=== PATIENT | female | born 1950 | race Caucasian/White ===

== ENCOUNTER 2022-06-27 07:31 | Inpatient (IN) | payer OTHER, SELFPAY ==
[2022-06-27] VITALS (11 sets, daily range): BP systolic 131–170; BP diastolic 60–99; PULSE 80–91; RESP 16–20; TEMP 36.3–36.5; O2SAT 85–100; BMI 34.2
--- NOTE | 2022-06-27 | ECHO_ITS ---
Patient Info Name: Andie Kelsey Age: 71 years : 1950 Gender: Female Ht: 60 in Wt: 175 lbs BSA: 1.87 m2 HR: 88 bpm BP: 132 / 60 mmHg Technical Quality: Fair Exam Date: 06/27/2022 3:10 PM Exam Location: [facility] Patient Status: Outpatient Admit Date: 06/27/2022 Staff Ordering Physician: Fleiz Daniels Night Auditor: Lisset Knight RDCS Attending Provider: Ryann Soto MD Referring Physician: DALLAS CALDERÓN ; Exam Type: CA echo doppler color flow Study Info Indications - FLUID STATUS Complete two-dimensional, color flow and Doppler transthoracic echocardiogram is performed. Summary 1. Complete two-dimensional, color flow and Doppler transthoracic echocardiogram is performed. 2. Left ventricular chamber dimension is normal. 3. Left ventricular systolic function is normal, estimated at 65-70%. 4. There is mildly increased left ventricular wall thickness. 5. The left ventricular diastolic function is grade I diastolic dysfunction. 6. E/e' 13 is mildly elevated. 7. There is moderate aortic valve sclerosis. 8. No pulmonary hypertension, estimated pulmonary arterial systolic pressure is 27 mmHg. Left Ventricle E/e' 13 is mildly elevated. Left ventricular chamber dimension is normal. Left ventricular systolic function is normal, estimated at 65-70%. There is mildly increased left ventricular wall thickness. The left ventricular diastolic function is grade I diastolic dysfunction. Right Ventricle Right ventricular chamber dimension is normal. Right ventricular systolic function is normal. Left Atria Left atrial chamber dimension is normal. Right Atria Right atrial chamber dimension is normal. Aortic Valve The aortic valve is trileaflet. There is moderate aortic valve sclerosis. There is no aortic valve stenosis. There is no aortic valve regurgitation. Pulmonic Valve There is no pulmonic regurgitation. Mitral Valve There is no mitral valve stenosis. There is no mitral valve regurgitation. Tricuspid Valve There is no tricuspid valve regurgitation. No pulmonary hypertension, estimated pulmonary arterial systolic pressure is 27 mmHg. Pericardium/Pleural There is no pericardial effusion. Inferior Vena Cava Normal inferior vena cava with >50% collapse upon inspiration consistent with normal right atrial pressure, 5 mmHg. Aorta The aortic root size at the sinus of Valsalva is normal. Left Ventricular Outflow Tract Name Value Normal LVOT 2D LVOT Diameter 2.0 cm LVOT Doppler LVOT Peak Gradient 4 mmHg LVOT Mean Gradient 2 mmHg LVOT VTI 19 cm LVOT VTI/AV VTI Ratio 0.9 LVOT Stroke Volume 61 ml LVOT CO 5.5 l/min LVOT CI 2.9 l/min/m2 Pulmonic Valve Name Value Normal
--- NOTE | ~2022-06-27 | CT_ITS ---
EXAMINATION: CT chest abdomen pelvis w con DATE: 06/27/2022 16:28 INDICATION: Shortness of breath. Nausea and vomiting. TECHNIQUE: Computed tomography (CT) of the chest, abdomen, and pelvis was performed with 100 mL Omnip aque 350 intravenous contrast. Automated exposure control and iterative reconstruction technique were employed. The dose-length product was 1413.43 mGy-cm. COMPARISON: None FINDINGS: CHEST CT: There are moderate-sized right and small left pleural effusions. There is smooth septal thickening in the lungs, consistent with mild pulmonary edema. There is atelectasis in the lungs with a dependent predominance. There are greater than 10 nodules in the lungs measuring up to 8 mm. The heart size is normal. There are coronary artery calcifications. No pericardial effusion. There is right hilar and m ediastinal lymphadenopathy including confluent lymphadenopathy in the superior mediastinum. There is a mass at the right sternoclavicular joint. Partially visualized is a 6.2 x 3.7 cm mass in inferior r ight breast with skin retraction. There are scattered lytic lesions of bone, consistent with metastat ic disease. There is mild thoracic spondylosis. There is a healing pathologic fracture of right sixth rib. There are a few scattered masses in the body wall. ABDOMEN/PELVIS CT: The liver and spleen are normal. There are changes of cholecystectomy. The pancreas demonstrates calc ifications and duct dilatation, consistent with chronic pancreatitis. The adrenal glands and left kid ada are normal. There is a 14 mm cyst in right kidney. There is an umbilical hernia containing fat. T here is diverticulosis of the colon without evidence of diverticulitis. There are no dilated loops of bowel. The appendix is normal. There are no pathologically enlarged lymph nodes. There is no free in traperitoneal fluid. There are scattered lytic lesions of bone including in the sacrum and iliac bone s. There is a pathologic avulsion fracture of lesser trochanter of proximal left femur with 3 cm dist raction. There is a lytic lesion of right anterior-inferior iliac spine with pathologic fracture. The re is severe lumbar spondylosis. IMPRESSION: 1. Right breast mass, consistent with primary malignancy. 2. Lung nodules, mediastinal lymphadenopathy, body wall masses, and widespread bone lesions, consiste nt with metastatic disease. 3. Moderate-sized right and small left pleural effusions. 4. Mild pulmonary edema. Reviewed, dictated and finalized at location A. IMPRESSION: 1. Right breast mass, consistent with primary malignancy. 2. Lung nodules, mediastinal lymphadenopathy, body wall masses, and widespread bone lesions, consistent with metastatic disease. 3. Moderate-sized right and small left pleural effusions. 4. Mild pulmonary edema.
--- NOTE | ~2022-06-27 | US_ITS ---
EXAMINATION: US right upper quadrant DATE: 06/27/2022 17:15 INDICATION: Abnormal liver function tests. TECHNIQUE: Multiple grayscale and Doppler ultrasound images of the abdomen were obtained. COMPARISON: CT 06/27/2022 FINDINGS: The visualized portions of the head of the pancreas are normal. The liver is normal without focal lesion. There is normal flow in main portal vein. The gallbladder is absent. The common duct i s normal and measures 7 mm. There is a right pleural effusion. IMPRESSION: 1. Right pleural effusion. Reviewed, dictated and finalized at location A. IMPRESSION: 1. Right pleural effusion.
--- NOTE | ~2022-06-27 | US_ITS ---
EXAMINATION: US thoracentesis DATE: 06/28/2022 11:56 INDICATION: pleural effusion TECHNIQUE: The procedure and its risks, benefits, and alternatives were discussed with the patient. P otential risks discussed included bleeding, infection, and pneumothorax. The patient understood the r isks and agreed to proceed. The skin was prepped and draped in sterile fashion. 1% lidocaine was used for local anesthesia. Under ultrasound guidance, a 5 Fr catheter with trochar was advanced into the right pleural effusion. Fluid was aspirated. The catheter was removed, and a dressing was applied. Th ere were no immediate complications. FINDINGS: Ultrasound images demonstrate a right pleural effusion and the catheter within the fluid. IMPRESSION: 1. Successful ultrasound-guided thoracentesis yielding 750 mL of clear, yellow fluid. Reviewed, dictated and finalized at location A.
--- NOTE | ~2022-06-27 | US_ITS ---
EXAMINATION: US venous doppler [facility] DATE: 06/27/2022 17:14 INDICATION: Lower limb edema. TECHNIQUE: Grayscale ultrasound images without and with compression and Doppler ultrasound images of the bilateral lower extremity veins were obtained. COMPARISON: None. FINDINGS: The visualized portions of right common femoral vein, profunda (deep) femoral vein, femoral vein, pop liteal vein, peroneal veins, posterior tibial veins, and greater saphenous vein outflow are patent. The visualized portions of left common femoral vein, profunda femoral vein, femoral vein, popliteal v ein, peroneal veins, posterior tibial veins, and greater saphenous vein outflow are patent. IMPRESSION: 1. No deep venous thrombosis. Reviewed, dictated and finalized at location A.
--- NOTE | ~2022-06-27 | XR_ITS ---
EXAMINATION: [id number] DATE: 06/28/2022 11:58 INDICATION: Right pleural effusion status post thoracentesis. TECHNIQUE: Frontal and lateral views of the chest were obtained. COMPARISON: Chest 2 views 06/27/2022, chest CT 06/27/2022 FINDINGS: The patient is rotated to her left on the frontal view. There are small pleural effusions. There is mild atelectasis in left lower lung zone. No pneumothorax. The heart size is normal. IMPRESSION: 1. Small pleural effusions with improvement on the right status post thoracentesis. 2. Mild atelectasis in left lower lung zone. Reviewed, dictated and finalized at location A. IMPRESSION: 1. Small pleural effusions with improvement on the right status post thoracente sis. 2. Mild atelectasis in left lower lung zone.
--- NOTE | ~2022-06-27 | XR_ITS ---
XR chest 2V 06/27/2022 08:11 Indication: Cough with shortness of breath Procedure: 2 view chest Comparison: No prior studies for comparison. Findings: Heart size normal. Diffuse bilateral airspace disease is present which may represent pneumo catarino or edema. Small pleural effusions. No pneumothorax. There are advanced degenerative changes right shoulder. Impression: 1: Diffuse bilateral airspace disease may represent pneumonia or edema. 2: Small pleural effusions. Reviewed, dictated and finalized at location B. Impression: 1: Diffuse bilateral airspace disease may represent pneumonia or edema. 2: Small pleural effusions.
--- NOTE | ~2022-06-27 | XR_ITS ---
EXAMINATION: XR chest 1V portable Exam Date/Time: 06/28/2022 15:35 CDT HISTORY: chest pain; hx of CHF Comparison: 06/27/2022. RESULT: Lines, tubes, and devices: None. Lungs and pleura: Slightly improved bibasilar aeration. Persistent reticular opacities and ill-defin ed vascular margins. Minimal bilateral angle blunting. Cardiomediastinal silhouette: Stable. Other: No acute osseous or upper abdominal finding. IMPRESSION: Interstitial pulmonary edema. Possible small bilateral effusions. Reviewed, dictated and finalized at location K.
--- NOTE | 2022-06-27 07:32 | ECG_ITS ---
Measurements Intervals [place] Rate: 64 P: 47 AL: 151 QRS: -12 QRSD: 70 T: 38 QT: 313 QTc: 325 Interpretive Statements BASELINE ARTIFACT/REDUCED DATA QUALITY SINUS RHYTHM WITH FREQUENT SUPRAVENTRICULAR PREMATURE COMPLEXES LOW QRS VOLTAGE IN PRECORDIAL LEADS [QRS DEFLECTION < 1.0 mV IN CHEST LEADS] NONSPECIFIC T-WAVE ABNORMALITY ABNORMAL RHYTHM ECG NO PREVIOUS ECG AVAILABLE FOR COMPARISON Electronically Signed On 06-27-2022 12:01:21 CDT by Juan Ralph M.D.
[2022-06-27 07:49] LABS: Basophils Percent Auto 0.5 % (0.2-1.2); Eosinophils Absolute Auto 0.2 K/mm3 (0-0.3); Eosinophils Percent Auto 2.1 % (0-4.4); Hemoglobin 12.3 g/dL (12.0-15.0); Immature Granulocyte Absolute 0.05 K/mm3 (0.00-0.031); Immature Granulocyte Percent A 0.7 % (0-0.5); Lymphocytes Absolute Auto 2.13 K/mm3 (0.9-3.2); Lymphocytes Percent Auto 28.1 % (18.3-44.2); Mean Corpuscular HGB Conc 32.4 g/dl (32-36); Mean Corpuscular Hemoglobin 31.2 pg (26-34); Mean Corpuscular Volume 96.4 fl (80-100); Monocytes Absolute Auto 0.8 K/mm3 (0.1-0.6); Neutrophils Absolute Auto 4.4 K/mm3 (1.3-6.7); Neutrophils Percent Auto 57.6 % (45.5-73.1); Platelet Count Result 341 k/mm3 (150-375); Red Blood Count 3.94 M/mm3 (4.2-5.4); Red Cell Distribution Width 14.9 % (11.5-14.5); White Blood Count 7.6 K/mm3 (4.5-10.0)
--- NOTE | 2022-06-27 07:53 | ED.SOB ---
HPI - SOB/Dyspnea General Chief Complaint: Shortness of Breath/Dyspnea Stated Complaint: dyspnea Time Seen by Provider: 06/27/22 07:34 History of Present Illness HPI Narrative: Patient presents here with several months of cough, worsening over last couple days, no fevers or chills, no nausea vomiting or diarrhea, was sent from jail because she was having increasing shortness of breath. Denies any lower extremity edema, or pain; no CHF or COPD, no chest pain. Related Data Allergies Allergy/AdvReac Type Severity Reaction Status Date / Time No Known Allergies Allergy Verified 06/27/22 10:43 Review of Systems Review of Systems: CONST: No fever. HEENT: No sore throat C/V: No chest pain RESP: cough GI: no nausea vomiting : No dysuria. M/S: No joint pain. SKIN: No rash. NEURO: [No headache or focal numbness or weakness] PSYCH: [No depression] PMFSH Past Medical History Medical History (Updated 06/27/22 @ 11:27 by Patience Allen MD) Depression Diabetes Social History Social History (Updated 06/27/22 @ 11:27 by Patience Allen MD) Smoking status: Never smoker Course Vital Signs Vital signs: Vital Signs Temperature 97.3 F L 06/27/22 07:33 Pulse Rate 91 06/27/22 07:33 Respiratory Rate 20 06/27/22 07:33 Blood Pressure 170/99 H 06/27/22 07:33 Pulse Oximetry 85 L 06/27/22 07:33 Oxygen Delivery Room Air 06/27/22 07:33 Temperature 97.6 F 06/27/22 10:40 Pulse Rate 90 06/27/22 10:40 Respiratory Rate 16 06/27/22 10:40 Blood Pressure 154/80 H 06/27/22 10:40 Pulse Oximetry 96 06/27/22 10:40 Oxygen Delivery Nasal Cannula 06/27/22 07:38 Oxygen Flow Rate 2 06/27/22 07:38 MDM - SOB/Dyspnea MDM Narrative Medical decision making narrative: 71-year-old female presenting with persistent cough and increasing shortness of breath, vital signs notable for hypoxia, patient placed on NC, and on exam NLR with clear lungs. Family now tells me this cough is chronic and she was being worked up for possible lung ca. CXR shows bilateral patchy opacities, concerning for possible edema versus pneumonia, given patient has already had multiple courses of azithromycin and the patchy opacities do not appear focal and WBC not elevated and I do feel less likely for this to be bacterial, I will not start patient on antibiotics at this time, patient will be admitted for further work-up and evaluation. D/w family and patient and hospitalist. Lab Data Result diagrams: 06/27/22 07:42 06/27/22 07:42 Labs: Lab Results 06/27/22 06/27/22 06/27/22 Range/Units 07:42 07:42 07:42 WBC 7.6 (4.5-10.0) K/mm3 RBC 3.94 L (4.2-5.4) M/mm3 Hgb 12.3 (12.0-15.0) g/dL Hct 38.0 (37.0-47.0) % MCV 96.4 (80-100) fl MCH 31.2 (26-34) pg MCHC 32.4 (32-36) g/dl RDW 14.9 H (11.5-14.5) % Plt Count 341 (150-375) k/mm3 MPV 10.0 (7.4-10.4) fl Immature Gran % (Auto) 0.7 H (0-0.5) % Neut % (Auto) 57.6 (45.5-73.1) % Lymph % (Auto) 28.1 (18.3-44.2) % Tompkins % (Auto) 11.0 H (2.6-8.5) % Eos % (Auto) 2.1 (0-4.4) % Baso % (Auto) 0.5 (0.2-1.2) % Lymph # (Auto) 2.13 (0.9-3.2) K/mm3 Tompkins # (Auto) 0.8 H (0.1-0.6) K/mm3 Eos # (Auto) 0.2 (0-0.3) K/mm3 Baso # (Auto) 0.0 (0.0-0.1) K/mm3 Abs Immat Gran (auto) 0.05 H (0.00-0.031) K/mm3 Absolute Neuts (auto) 4.4 (1.3-6.7) K/mm3 Absolute Nucleated RBC 0.0 (0.0-0.012) K/mm3 Nucleated RBC % 0.0 (0.0-0.2) % Sodium 137 (137-145) mmol/L Potassium 3.8 (3.4-5.0) mmol/L Chloride 99 (98-107) mmol/L Carbon Dioxide 30 (22-30) mmol/L Anion Gap 8 (8-16) mmol/L BUN 24 H (7-17) mg/dL Creatinine 0.80 (0.7-1.0) mg/dL Estim Creat Clear Calc Not Reportable Estimated GFR > 60 (59 - ) Glucose 106 (65-110) mg/dL Calcium 9.4 (8.4-10.2) mg/dL Total Bilirubin 0.6 (0.2-1.3) mg/dL AST 102 H (14-36) U/L
[2022-06-27 08:01] LABS: Alanine Aminotransferase 67 U/L (6-35); Albumin Level 3.7 g/dL (3.5-5.1); Alkaline Phosphatase 132 U/L (38-126); Anion Gap 8 mmol/L (8-16); Aspartate Amino Transferase 102 U/L (14-36); Bilirubin,Total 0.6 mg/dL (0.2-1.3); Blood Urea Nitrogen 24 mg/dL (7-17); Calcium 9.4 mg/dL (8.4-10.2); Carbon Dioxide 30 mmol/L (22-30); Chloride 99 mmol/L (98-107); Estimated Glomerular Filt Rate > 60; Glucose 106 mg/dL (65-110); Potassium 3.8 mmol/L (3.4-5.0); Sodium 137 mmol/L (137-145)
[2022-06-27 08:28] LABS: SARS-CoV-2 RNA PCR Negative
[2022-06-27 10:05] LABS: NT Pro B Type Natriuretic Pept 162 pg/mL (5-100)
[2022-06-27] MEDS: ONDANSETRON INJ 4 MG/2 ML VIAL IV PUSH ×2 (13:52→21:53)
--- NOTE | 2022-06-27 14:20 | PM.IMHP ---
H&P: HPI History of Present Illness Date/Time: 06/27/22 14:20 Chief Complaint: Increased shortness of breath Narrative: Patient is a 71-year-old female with a past medical history of breast cancer, CVA, hypothyroidism, glaucoma, diabetes, hyperlipidemia, oa who presented to the ED with increased shortness of breath. Patient stated that her shortness of breath has been going on for about 2 weeks. She states that it gets so bad that she is unable to talk. She also stated that she has been having a cough however the cough has been going on for about 5 months. She reports that she is not getting anything up with her cough. Family reports that she has not been eating and has had lack of appetite. She also states that when she gets up in the morning that she is nauseated and has had Zofran right away. She also denies any chest pain, headaches, vomiting, weakness, fatigue, dizziness or syncope or falls. Is reported that the patient usually uses depends. She reports no issues with urination including pain, burning, a frequency. She does report some pain in the bilateral hands and arms. She also states that she used to have swelling specially when she has had chair in her bilateral lower extremities however when she is lying in bed it does not swell as bad. Patient also states that she does become very short of breath especially talking. Her family does say that she is very immobile and does little to get herself out of bed to a chair. They did say 1 time about 2 months ago she was getting herself pivoting from the bed to the chair however she has not been wanting to that since she has not been feeling good. There is also mention that the patient was diagnosed with breast cancer recently and she does not want any surgery, chemo, radiation. She was trying to get her scans a PET scan and bone density scan however with insurance issues there has been problems getting those and her scheduled currently on the . Patient denies being a smoker however she was around a lot of smoking her life. Her dad and her were both heavy smokers. Chest x-ray does show diffuse bilateral airspace disease representing pneumonia or edema and small pleural effusions. BNP was slightly elevated 162. Liver enzymes are elevated AST 102 ALT 67 alk-phos 132. Will get a CT of the chest abdomen and pelvis. As patient was eating today she did have issues with nausea which was causing her inability to finish her food. Patient is being admitted to the hospital services as inpatient Review of Systems Review of Systems: All systems reviewed & are unremarkable except as noted in HPI and below PMFSH Past Medical History Medical History Breast cancer CHF (congestive heart failure) Depression Diabetes GERD (gastroesophageal reflux disease) Glaucoma Hyperlipidemia Hypothyroid Peripheral neuropathy Surgical History Surgical History H/O: hysterectomy Hx of appendectomy Family History Family History Mother Pulmonary embolism Abdominal malignancy Diabetes mellitus Father Malignant neoplasm of prostate Social History Social History (Updated 06/27/22 @ 14:38 by RITCHIE Courtney) Social History: Patient currently is a resident of [facility]. Her son Casey and daughter in law Barbara are her surrogates. Her about 6 years ago. She denies having any pets. She wishes to be a full code at this time. Smoking status: Never smoker Second hand tobacco smoke exposure: Yes (Father and were heavy smokers) Alcohol intake: never Substance use: never Living arrangements: intermediate Additional living arrangements comments: [facility] Occupation/Education: occupation Additional occupation/education comments: [employer]- called the [employer] Gender iden
--- NOTE | 2022-06-27 14:46 | PCDIET ---
Nutrition screen for MST and PU. Submitted full assessment with no protein or fluid recommendations. Awaiting diagnoses to determine appropriate amount. Will edit on Thursday.
[2022-06-27] MEDS: DOCUSATE SODIUM 100 MG CAPSULE PO (17:42)
[2022-06-27 17:43] LABS: Glucose Point of Care 86 mg/dl (65-105)
[2022-06-27] MEDS: FUROSEMIDE INJ 40 MG/4 ML VIAL (17:43)
[2022-06-27 19:51] LABS: Hemoglobin A1C 5.4 % (<5.7)
[2022-06-27] MEDS: LATANOPROST 0.005% OP SOLN 2.5 ML BTL 1 DROP RIGHT EYE (20:24)
[2022-06-27] MEDS: PANTOPRAZOLE 40 MG TABLET PO (20:24)
[2022-06-27 20:32] LABS: Glucose Point of Care 96 mg/dl (65-105)
[2022-06-27] MEDS: HYDROcodone/acetaminophen (*CRX) 5-325 MG TABLET 1 TAB PO (21:53)
[2022-06-28] VITALS (9 sets, daily range): BP systolic 120–152; BP diastolic 59–76; PULSE 76–91; RESP 17–20; TEMP 35.8–37; O2SAT 92–98
[2022-06-28] MEDS: guaiFENesin 600 MG/DEXTROMETHORPHAN 30 MG SR TAB 12 HR 1 TAB PO ×2 (00:17→19:58)
[2022-06-28] MEDS: ONDANSETRON INJ 4 MG/2 ML VIAL IV PUSH ×2 (02:05→06:02)
[2022-06-28] MEDS: LEVOTHYROXINE SODIUM 75 MCG TABLET PO (06:02)
[2022-06-28 06:10] LABS: Basophils Percent Auto 0.4 % (0.2-1.2); Eosinophils Absolute Auto 0.1 K/mm3 (0-0.3); Eosinophils Percent Auto 1.5 % (0-4.4); Hematocrit 38.9 % (37.0-47.0); Hemoglobin 12.5 g/dL (12.0-15.0); Immature Granulocyte Absolute 0.05 K/mm3 (0.00-0.031); Immature Granulocyte Percent A 0.6 % (0-0.5); Lymphocytes Absolute Auto 1.97 K/mm3 (0.9-3.2); Lymphocytes Percent Auto 23.9 % (18.3-44.2); Mean Corpuscular HGB Conc 32.1 g/dl (32-36); Mean Corpuscular Hemoglobin 30.9 pg (26-34); Mean Corpuscular Volume 96.3 fl (80-100); Mean Platelet Volume 10.2 fl (7.4-10.4); Monocytes Percent Auto 11.9 % (2.6-8.5); Neutrophils Absolute Auto 5.1 K/mm3 (1.3-6.7); Neutrophils Percent Auto 61.7 % (45.5-73.1); Platelet Count Result 361 k/mm3 (150-375); Red Blood Count 4.04 M/mm3 (4.2-5.4); Red Cell Distribution Width 15.1 % (11.5-14.5); White Blood Count 8.3 K/mm3 (4.5-10.0)
[2022-06-28 06:31] LABS: Alanine Aminotransferase 75 U/L (6-35); Albumin Level 3.9 g/dL (3.5-5.1); Alkaline Phosphatase 145 U/L (38-126); Anion Gap 9 mmol/L (8-16); Aspartate Amino Transferase 122 U/L (14-36); Bilirubin,Total 0.4 mg/dL (0.2-1.3); Blood Urea Nitrogen 22 mg/dL (7-17); Calcium 9.3 mg/dL (8.4-10.2); Carbon Dioxide 31 mmol/L (22-30); Chloride 96 mmol/L (98-107); Estimated CRCL calculation 46 ml/min; Estimated Glomerular Filt Rate > 60; Glucose 96 mg/dL (65-110); Magnesium 1.6 mg/dL (1.6-2.3); Potassium 3.7 mmol/L (3.4-5.0); Sodium 136 mmol/L (137-145)
[2022-06-28 08:02] LABS: Glucose Point of Care 94 mg/dl (65-105)
[2022-06-28] MEDS: METOCLOPRAMIDE HCL INJ 10 MG/2 ML VIAL IV PUSH (08:14)
[2022-06-28 08:32] LABS: INR 1.1; Prothrombin Time 13.8 Seconds (11.1-14.7)
[2022-06-28] MEDS: PANTOPRAZOLE SODIUM IV 40 MG VIAL IV PUSH ×2 (08:33→19:59)
[2022-06-28] MEDS: FUROSEMIDE INJ 40 MG/4 ML VIAL IV PUSH (08:33)
[2022-06-28 08:39] LABS: Triglycerides 128 mg/dL (<150)
[2022-06-28 08:51] LABS: Lipase < 10 U/L (23-300)
[2022-06-28 08:53] LABS: Amylase 32 U/L (30-110); Cholesterol 140 mg/dL (0-200); Lactate Dehydrogenase 322 U/L (120-246)
[2022-06-28 09:25] LABS: Hepatitis B Surface Antigen Negative (Negative)
[2022-06-28 09:31] LABS: HAV RESULT Negative (Negative); Hepatitis B Core IgM Result Negative (Negative)
[2022-06-28 09:42] LABS: Hepatitis C Virus Antibody Negative (Negative)
--- NOTE | 2022-06-28 11:30 | P.PNIM_ITS ---
Progress Note: A&P Assessment and Plan (1) CHF (congestive heart failure): Code(s): I50.9 - Heart failure, unspecified Status: Acute Assessment and Plan: * Chest xray shows PNA vs edema * CT of the chest/abd/pel found mild pulmonary edema, metastatic lesions, and moderate right side pleural effusion * BNP 162 * Echo EF of 65-70% with grade 1 diastolic dysfunction, moderate A. Valve stenosis, left vent wall thickening * Lasix 40mg IV daily for now * Trend daily weights * Appears to be in diastolic dysfunction heart failure exacerbation * Trend urinary output (2) Pleural effusion: Code(s): J90 - Pleural effusion, not elsewhere classified Status: Acute Assessment and Plan: * CT of the chest found moderate right sided pleural effusion * Thoracentesis 750ml off * Diagnostic labs ordered and pending * Hold anticoagulation for now * Probably the reason for the shortness of breath * NPO for now (3) Metastatic breast cancer: Code(s): C50.919 - Malignant neoplasm of unspecified site of unspecified female breast Status: Acute Assessment and Plan: * CT shows primary breast cancer, with metastasis to the lung, lymph nodes, and bone * Bone scan and Pet scan ordered for the end of the month * Patient not wanting treatment * Probably will need to have a hospice consult * Will plan for family discussion today (4) Diabetes: Code(s): E11.9 - Type 2 diabetes mellitus without complications Status: Acute Assessment and Plan: * Current glucose 96 * Accu Cheks achs * Diabetic diet * A1c 5.4 * Hold home orals * ISS * Trend glucose * Adjust therapy as indicated (5) Hypothyroid: Code(s): E03.9 - Hypothyroidism, unspecified Status: Acute Assessment and Plan: * TSH 3.260 * Continue home levothyroxine 75 mcg PO Daily * Adjust as indicated (6) Hyperlipidemia: Code(s): E78.5 - Hyperlipidemia, unspecified Status: Acute Assessment and Plan: * Continue home simvastatin and fenofibrate * Liver enzymes slightly elevated will continue to trend labs (7) Transaminitis: Code(s): R74.01 - Elevation of levels of liver transaminase levels Status: Acute Assessment and Plan: * AST/ALT 122/75 * Alk phos 145 * RUQ ultra sound normal * Lipase * Hep panel * Continue to trend labs (8) Pathologic fracture: Status: Acute Assessment and Plan: * CT found multiple pathological bone fractures, including right sixth rib, lesser trocanter of the proximal left femur * Multiple lesion noted in multiple bones through out the body, see ct scan * Bone scan schedule outpatient (9) Lung nodules: Code(s): R91.8 - Other nonspecific abnormal finding of lung field Status: Acute Assessment and Plan: * CT of the chest identified greater than 10 lung nodes * Probably the cause for the pleural effusion * Thoracentesis ordered with diagnostics (10) Nausea and vomiting: Code(s): R11.2 - Nausea with vomiting, unspecified Status: Acute Assessment and Plan: * Complaints of nausea and vomiting * Change PO protonix to IV for now BID * Zofran ordered * Reglan x 1 * Could be related to m
--- NOTE | 2022-06-28 11:30 | PM.IMPN ---
Progress Note: A&P Assessment and Plan (1) CHF (congestive heart failure): Code(s): I50.9 - Heart failure, unspecified Status: Acute Assessment and Plan: Chest xray shows PNA vs edema CT of the chest/abd/pel found mild pulmonary edema, metastatic lesions, and moderate right side pleural effusion BNP 162 Echo EF of 65-70% with grade 1 diastolic dysfunction, moderate A. Valve stenosis, left vent wall thickening Lasix 40mg IV daily for now Trend daily weights Appears to be in diastolic dysfunction heart failure exacerbation Trend urinary output (2) Pleural effusion: Code(s): J90 - Pleural effusion, not elsewhere classified Status: Acute Assessment and Plan: CT of the chest found moderate right sided pleural effusion Thoracentesis 750ml off Diagnostic labs ordered and pending Hold anticoagulation for now Probably the reason for the shortness of breath NPO for now (3) Metastatic breast cancer: Code(s): C50.919 - Malignant neoplasm of unspecified site of unspecified female breast Status: Acute Assessment and Plan: CT shows primary breast cancer, with metastasis to the lung, lymph nodes, and bone Bone scan and Pet scan ordered for the end of the month Patient not wanting treatment Probably will need to have a hospice consult Will plan for family discussion today (4) Diabetes: Code(s): E11.9 - Type 2 diabetes mellitus without complications Status: Acute Assessment and Plan: Current glucose 96 Accu Cheks achs Diabetic diet A1c 5.4 Hold home orals ISS Trend glucose Adjust therapy as indicated (5) Hypothyroid: Code(s): E03.9 - Hypothyroidism, unspecified Status: Acute Assessment and Plan: TSH 3.260 Continue home levothyroxine 75 mcg PO Daily Adjust as indicated (6) Hyperlipidemia: Code(s): E78.5 - Hyperlipidemia, unspecified Status: Acute Assessment and Plan: Continue home simvastatin and fenofibrate Liver enzymes slightly elevated will continue to trend labs (7) Transaminitis: Code(s): R74.01 - Elevation of levels of liver transaminase levels Status: Acute Assessment and Plan: AST/ALT 122/75 Alk phos 145 RUQ ultra sound normal Lipase Hep panel Continue to trend labs (8) Pathologic fracture: Status: Acute Assessment and Plan: CT found multiple pathological bone fractures, including right sixth rib, lesser trocanter of the proximal left femur Multiple lesion noted in multiple bones through out the body, see ct scan Bone scan schedule outpatient (9) Lung nodules: Code(s): R91.8 - Other nonspecific abnormal finding of lung field Status: Acute Assessment and Plan: CT of the chest identified greater than 10 lung nodes Probably the cause for the pleural effusion Thoracentesis ordered with diagnostics (10) Nausea and vomiting: Code(s): R11.2 - Nausea with vomiting, unspecified Status: Acute Assessment and Plan: Complaints of nausea and vomiting Change PO protonix to IV for now BID Zofran ordered Reglan x 1 Could be related to metastatic breast cancer CT of the abdomen does not indicate any findings except chronic pancreatitis Lipase ordered RUQ ultrasound does not indicate reason for the nausea and vomiting Time Spent With Patient Time: 35 minutes talking with the patient and family about current findings Time with patient: Greater than 35 minutes Subjective Date/time seen: 06/28/22 11:30 Interval history: 06/28/22 1130 patient seems to be doing okay this morning. She seems very tired and weak. She also stated that she is not able to move around like she likes. She has been very nauseous and vomitus today. She stated that she did have a BM this morn
[2022-06-28 12:32] LABS: Glucose Point of Care 80 mg/dl (65-105)
[2022-06-28 12:51] LABS: Appearance Pleural Fluid Hazy (Clear); Color Pleural Fluid Yellow (Colorless); Pleural fluid source Pleural fluid
[2022-06-28 12:56] LABS: Lymphocytes Pleural Fluid 94 %; Mesothelial Cells Pleural Flui 2 %; Monocytes Pleural Fluid 4 %
[2022-06-28] MEDS: HYDROcodone/acetaminophen (*CRX) 5-325 MG TABLET 1 TAB PO ×2 (14:48→22:15)
[2022-06-28] MEDS: LORazepam (*CRX) 0.5 MG TABLET PO ×2 (15:28→19:59)
[2022-06-28] MEDS: diazePAM INJ (*CRX) 10 MG/2 ML SYRINGE 5 MG IV PUSH (15:32)
[2022-06-28 15:57] LABS: Troponin I < 0.012 ng/mL (0.000-0.034)
[2022-06-28 16:50] LABS: Glucose Point of Care 90 mg/dl (65-105)
[2022-06-28] MEDS: LATANOPROST 0.005% OP SOLN 2.5 ML BTL 1 DROP RIGHT EYE (19:59)
[2022-06-28 21:18] LABS: Glucose Point of Care 106 mg/dl (65-105)
[2022-06-29] VITALS: PULSE 87
[2022-06-29 04:00] VITALS: PULSE 87
[2022-06-29] MEDS: HYDROcodone/acetaminophen (*CRX) 5-325 MG TABLET 1 TAB PO ×2 (05:13→11:56)
[2022-06-29] MEDS: LEVOTHYROXINE SODIUM 75 MCG TABLET PO (05:14)
[2022-06-29 05:20] VITALS: BP 136/75; PULSE 90; RESP 18; TEMP 36.8; O2SAT 94
[2022-06-29 06:03] LABS: Basophils Percent Auto 0.2 % (0.2-1.2); Eosinophils Absolute Auto 0.1 K/mm3 (0-0.3); Eosinophils Percent Auto 1.6 % (0-4.4); Hematocrit 40.8 % (37.0-47.0); Immature Granulocyte Absolute 0.05 K/mm3 (0.00-0.031); Immature Granulocyte Percent A 0.6 % (0-0.5); Lymphocytes Absolute Auto 2.21 K/mm3 (0.9-3.2); Lymphocytes Percent Auto 25.5 % (18.3-44.2); Mean Corpuscular HGB Conc 31.9 g/dl (32-36); Mean Corpuscular Volume 97.4 fl (80-100); Mean Platelet Volume 10.2 fl (7.4-10.4); Monocytes Absolute Auto 1.2 K/mm3 (0.1-0.6); Monocytes Percent Auto 14.2 % (2.6-8.5); Neutrophils Percent Auto 57.9 % (45.5-73.1); Platelet Count Result 330 k/mm3 (150-375); Red Blood Count 4.19 M/mm3 (4.2-5.4); White Blood Count 8.7 K/mm3 (4.5-10.0)
[2022-06-29 06:29] LABS: Alanine Aminotransferase 83 U/L (6-35); Albumin Level 3.8 g/dL (3.5-5.1); Alkaline Phosphatase 141 U/L (38-126); Anion Gap 11 mmol/L (8-16); Aspartate Amino Transferase 127 U/L (14-36); Bilirubin,Total 0.4 mg/dL (0.2-1.3); Blood Urea Nitrogen 24 mg/dL (7-17); Calcium 8.8 mg/dL (8.4-10.2); Carbon Dioxide 29 mmol/L (22-30); Chloride 97 mmol/L (98-107); Estimated CRCL calculation 46 ml/min; Estimated Glomerular Filt Rate > 60; Glucose 91 mg/dL (65-110); Magnesium 1.7 mg/dL (1.6-2.3); Potassium 3.5 mmol/L (3.4-5.0); Sodium 137 mmol/L (137-145)
[2022-06-29 08:00] VITALS: PULSE 88; O2SAT 94
[2022-06-29 08:11] LABS: Glucose Point of Care 99 mg/dl (65-105)
[2022-06-29] MEDS: buPROPion HCL XL (24 HR) 150 MG TABCR PO (08:14)
[2022-06-29] MEDS: GABAPENTIN 300 MG CAPSULE PO (08:14)
[2022-06-29] MEDS: FUROSEMIDE INJ 40 MG/4 ML VIAL IV PUSH (08:14)
[2022-06-29] MEDS: DOCUSATE SODIUM 100 MG CAPSULE PO (08:14)
[2022-06-29] MEDS: guaiFENesin 600 MG/DEXTROMETHORPHAN 30 MG SR TAB 12 HR 1 TAB PO (08:14)
[2022-06-29] MEDS: FENOFIBRATE 160 MG TABLET PO (08:14)
[2022-06-29] MEDS: SIMVASTATIN 20 MG TABLET 40 MG PO (08:15)
[2022-06-29] MEDS: PANTOPRAZOLE SODIUM IV 40 MG VIAL IV PUSH (08:15)
--- NOTE | 2022-06-29 11:15 | PM.DS ---
DS: Admitting Diagnosis Discharge Date 06/29/22 1115 Admitting Diagnosis Carcinoma of the lung, lymph nodes, kidney and bone DS: Discharge Diagnosis Discharge Diagnosis (1) CHF (congestive heart failure): Code(s): I50.9 - Heart failure, unspecified Status: Acute Assessment and Plan: Chest xray shows PNA vs edema CT of the chest/abd/pel found mild pulmonary edema, metastatic lesions, and moderate right side pleural effusion BNP 162 Echo EF of 65-70% with grade 1 diastolic dysfunction, moderate A. Valve stenosis, left vent wall thickening Lasix 40mg IV daily for now Trend daily weights Appears to be in diastolic dysfunction heart failure exacerbation Trend urinary output (2) Pleural effusion: Code(s): J90 - Pleural effusion, not elsewhere classified Status: Acute Assessment and Plan: CT of the chest found moderate right sided pleural effusion Thoracentesis 750ml off Diagnostic labs ordered and pending Hold anticoagulation for now Probably the reason for the shortness of breath NPO for now (3) Metastatic breast cancer: Code(s): C50.919 - Malignant neoplasm of unspecified site of unspecified female breast Status: Acute Assessment and Plan: CT shows primary breast cancer, with metastasis to the lung, lymph nodes, and bone Bone scan and Pet scan ordered for the end of the month Patient not wanting treatment Probably will need to have a hospice consult Will plan for family discussion today (4) Diabetes: Code(s): E11.9 - Type 2 diabetes mellitus without complications Status: Acute Assessment and Plan: Current glucose 96 Accu Cheks achs Diabetic diet A1c 5.4 Hold home orals ISS Trend glucose Adjust therapy as indicated (5) Hypothyroid: Code(s): E03.9 - Hypothyroidism, unspecified Status: Acute Assessment and Plan: TSH 3.260 Continue home levothyroxine 75 mcg PO Daily Adjust as indicated (6) Hyperlipidemia: Code(s): E78.5 - Hyperlipidemia, unspecified Status: Acute Assessment and Plan: Continue home simvastatin and fenofibrate Liver enzymes slightly elevated will continue to trend labs (7) Transaminitis: Code(s): R74.01 - Elevation of levels of liver transaminase levels Status: Acute Assessment and Plan: AST/ALT 122/75 Alk phos 145 RUQ ultra sound normal Lipase Hep panel Continue to trend labs (8) Pathologic fracture: Status: Acute Assessment and Plan: CT found multiple pathological bone fractures, including right sixth rib, lesser trocanter of the proximal left femur Multiple lesion noted in multiple bones through out the body, see ct scan Bone scan schedule outpatient (9) Lung nodules: Code(s): R91.8 - Other nonspecific abnormal finding of lung field Status: Acute Assessment and Plan: CT of the chest identified greater than 10 lung nodes Probably the cause for the pleural effusion Thoracentesis ordered with diagnostics (10) Nausea and vomiting: Code(s): R11.2 - Nausea with vomiting, unspecified Status: Acute Assessment and Plan: Complaints of nausea and vomiting Change PO protonix to IV for now BID Zofran ordered Reglan x 1 Could be related to metastatic breast cancer CT of the abdomen does not indicate any findings except chronic pancreatitis Lipase ordered RUQ ultrasound does not indicate reason for the nausea and vomiting DS: Summary Hospital Course Hospital Course: Patient is a 71 year old female with a past medical history of breast cancer, CVA, peripheral neuropathy, hyperlipidemia who presented to the ED with complaints of shortness of breath and increased work of breathing. Chest x-ray was performed and showed pneumonia versus pulmonary e
--- NOTE | 2022-06-29 11:15 | P.DS_ITS ---
DS: Admitting Diagnosis Discharge Date 06/29/22 1115 Admitting Diagnosis Carcinoma of the lung, lymph nodes, kidney and bone DS: Discharge Diagnosis Discharge Diagnosis (1) CHF (congestive heart failure): Code(s): I50.9 - Heart failure, unspecified Status: Acute Assessment and Plan: * Chest xray shows PNA vs edema * CT of the chest/abd/pel found mild pulmonary edema, metastatic lesions, and moderate right side pleural effusion * BNP 162 * Echo EF of 65-70% with grade 1 diastolic dysfunction, moderate A. Valve stenosis, left vent wall thickening * Lasix 40mg IV daily for now * Trend daily weights * Appears to be in diastolic dysfunction heart failure exacerbation * Trend urinary output (2) Pleural effusion: Code(s): J90 - Pleural effusion, not elsewhere classified Status: Acute Assessment and Plan: * CT of the chest found moderate right sided pleural effusion * Thoracentesis 750ml off * Diagnostic labs ordered and pending * Hold anticoagulation for now * Probably the reason for the shortness of breath * NPO for now (3) Metastatic breast cancer: Code(s): C50.919 - Malignant neoplasm of unspecified site of unspecified female breast Status: Acute Assessment and Plan: * CT shows primary breast cancer, with metastasis to the lung, lymph nodes, and bone * Bone scan and Pet scan ordered for the end of the month * Patient not wanting treatment * Probably will need to have a hospice consult * Will plan for family discussion today (4) Diabetes: Code(s): E11.9 - Type 2 diabetes mellitus without complications Status: Acute Assessment and Plan: * Current glucose 96 * Accu Cheks achs * Diabetic diet * A1c 5.4 * Hold home orals * ISS * Trend glucose * Adjust therapy as indicated (5) Hypothyroid: Code(s): E03.9 - Hypothyroidism, unspecified Status: Acute Assessment and Plan: * TSH 3.260 * Continue home levothyroxine 75 mcg PO Daily * Adjust as indicated (6) Hyperlipidemia: Code(s): E78.5 - Hyperlipidemia, unspecified Status: Acute Assessment and Plan: * Continue home simvastatin and fenofibrate * Liver enzymes slightly elevated will continue to trend labs (7) Transaminitis: Code(s): R74.01 - Elevation of levels of liver transaminase levels Status: Acute Assessment and Plan: * AST/ALT 122/75 * Alk phos 145 * RUQ ultra sound normal * Lipase * Hep panel * Continue to trend labs (8) Pathologic fracture: Status: Acute Assessment and Plan: * CT found multiple pathological bone fractures, including right sixth rib, lesser trocanter of the proximal left femur * Multiple lesion noted in multiple bones through out the body, see ct scan * Bone scan schedule outpatient (9) Lung nodules: Code(s): R91.8 - Other nonspecific abnormal finding of lung field Status: Acute Assessment and Plan: * CT of the chest identified greater than 10 lung nodes * Probably the cause for the pleural effusion * Thoracentesis ordered with diagnostics (10) Nausea and vomiting: Code(s): R11.2 - Nausea with vomiting, unspecified Status: Acute Assessment and
[2022-06-29 11:35] LABS: Glucose Point of Care 112 mg/dl (65-105)
--- NOTE | 2022-06-29 11:44 | PCSTNOTE ---
Patient seen for bedside swallowing evaluation due to reported decline in appetite and coughing during and after eating/drinking. Patient was positioned upright in bed and tolerated sips of water through straw with no signs or symptoms of aspiration. She is on regular diet and eating according to her own desire but appetite has been reduced in recent weeks. According to hospitalist patient may benefit from using chin tuck when eating and drinking. Per nursing, patient is currently awaiting hospice assessment. Diet recommendation: regular texture (level 7) and thin liquids. Thank you for the referral of this patient.
[2022-06-29 12:00] VITALS: PULSE 91
[2022-06-29 14:00] VITALS: BP 115/58; PULSE 89; RESP 18; TEMP 36.1; O2SAT 95
[2022-06-29 14:37] LABS: EDCOVIDSCREEN Negative (Negative)
[2022-06-29 16:17] LABS: Glucose Point of Care 124 mg/dl (65-105)
[2022-07-01 12:44] LABS: Albumin Pleural Fluid 2.1 g/dL
[2022-07-01 20:06] LABS: Glucose Pleural Fluid 97 mg/dL; LDH Pleural Fluid 90 U/L; Total Protein Pleural Fluid <3.0 g/dL
[2022-07-02 13:27] LABS: Amylase, Pleural Fluid <10 U/L
== END 2022-06-29 16:35 | disposition hospice, home (50) | DRG 180 ==
LOC: ANHED 08:01 → ANH3MEDSUR 15:03
PROVIDERS: Admitting Provider Family Medicine; Emergency Provider Emergency Medicine; PCP Family Medicine; Visit Provider Nurse Practitioner
DX: C78.00 Secondary malignant neoplasm of unspecified lung (principal); I50.31 Acute diastolic (congestive) heart failure; J91.0 Malignant pleural effusion; C77.9 Secondary and unspecified malignant neoplasm of lymph node, unspecified; C79.51 Secondary malignant neoplasm of bone; M84.48XA Pathological fracture, other site, initial encounter for fracture; M84.452A Pathological fracture, left femur, initial encounter for fracture; C50.919 Malignant neoplasm of unspecified site of unspecified female breast; Z20.822 Contact with and (suspected) exposure to COVID-19; E03.9 Hypothyroidism, unspecified; E11.42 Type 2 diabetes mellitus with diabetic polyneuropathy; E78.5 Hyperlipidemia, unspecified; R74.01 Elevation of levels of liver transaminase levels; R11.2 Nausea with vomiting, unspecified; H40.9 Unspecified glaucoma; Z66 Do not resuscitate; Z86.73 Personal history of transient ischemic attack (TIA), and cerebral infarction without residual deficits
CPT/HCPCS: 32555; 36415; 71045; 71046; 71260; 74177; 76705; 80053; 80074; 82042; 82150; 82465; 82945; 82948; 83036; 83615; 83690; 83735; 83880; 83986; 84157; 84311; 84443; 84478; 84484; 85025; 85610; 87015; 87040; 87045; 87070; 87075; 87086; 87102; 87116; 87205; 87206; 87426; 87427; 88108; 88184; 88305; 88342; 89051; 92610; 93005; 93306; 93970; 96365; 96368; 96375; 96376; 99285; A9270; C9113; C9803; G0378; J0456; J0696; J1940; J2405; J2765; J3360; Q9967; U0003; U0005